=== PATIENT | female | born 1940 | race Caucasian/White ===

== ENCOUNTER → 2017-01-09 | Outpatient (CLI) | payer MEDICARE, BC | LOC: CT 12-26 11:00 → OPSV 01-02 08:30 → CT 01-02 11:00 → OPSV 11:00 | DX: C18.2 Malignant neoplasm of ascending colon (principal); D50.9 Iron deficiency anemia, unspecified; C92.11 Chronic myeloid leukemia, BCR/ABL-positive, in remission; E86.0 Dehydration; N20.0 Calculus of kidney; K76.0 Fatty (change of) liver, not elsewhere classified | CPT/HCPCS: 71260; 74160; 96360; 96361; J7030; J7050; Q9962 ==